=== PATIENT | female | born 1990 | race Caucasian/White ===

== ENCOUNTER 2016-06-27 10:55 | Emergency (ER) | payer BC ==
[2016-06-27 11:21] VITALS: BP 103/61
--- NOTE | 2016-06-27 11:44 | UC ---
Complaint Female HPI - HPI Summary HPI Summary: Patient has had burning with urination, increased frequency for the last three days, has increased her fluid intake to help flush her system. she denies any lower abdominal pain, fever. she is having some spotting from her monthly cycle is on the Mirena. - History Of Current Complaint Chief Complaint: UCGU Stated Complaint: UTI Time Seen by Provider: 06/27/16 11:30 Hx Obtained From: Patient Hx Last Menstrual Period: IUD ?: No Onset/Duration: Sudden Onset, Lasting Days Timing: Constant Severity Initially: Mild Severity Currently: Mild Pain Intensity: 3 Pain Scale Used: 0-10 Numeric Character: Burning, Cramping Aggravating Factor(s): Urination Alleviating Factor(s): Nothing - Risk Factors Ectopic Risk Factor: Negative Ovarian Torsion Risk Factor: Negative - Allergies/Home Medications Allergies/Adverse Reactions: Allergies Allergy/AdvReac Type Severity Reaction Status Date / Time Milk Protein Extract Allergy Severe Diarrhea Verified 06/17/14 16:51 Penicillins [PCN] Allergy Severe Difficulty Verified 06/17/14 16:51 Breathing ALMONDS Allergy Severe Hives, Uncoded 06/17/14 16:51 THROAT SWELLING PMH/Surg Hx/FS Hx/Imm Hx Previously Healthy: Yes Respiratory History Of: Reports: Asthma - Surgical History Surgical History: None - Family History Known Family History: Negative: Cardiac Disease, Hypertension - Social History Alcohol Use: Occasionally Substance Use Type: Marijuana Smoking Status (MU): Current Every Day Smoker Type: Cigarettes Amount Used/How Often: 3 CIG/DAY Review of Systems Constitutional: Negative Skin: Negative Eyes: Negative ENT: Negative Respiratory: Negative Cardiovascular: Negative Gastrointestinal: Negative Genitourinary: Dysuria, Frequency Motor: Negative Neurovascular: Negative Musculoskeletal: Negative Neurological: Negative Psychological: Negative All Other Systems Reviewed And Are Negative: Yes Physical Exam Triage Information Reviewed: Yes Appearance: Well-Appearing, Well-Nourished, Pain Distress Vital Signs: Initial Vital Signs Temp 98.7 F 06/27/16 11:17 Pulse 77 06/27/16 11:17 Resp 16 06/27/16 11:17 BP 103/61 06/27/16 11:17 Pulse Ox 100 06/27/16 11:17 Vital Signs Reviewed: Yes Eye Exam: Normal Eyes: Positive: Conjunctiva Clear ENT Exam: Normal ENT: Positive: Normal ENT inspection, Pharynx normal, TMs normal Dental Exam: Normal Neck exam: Normal Neck: Positive: Supple, Nontender, No Lymphadenopathy Respiratory Exam: Normal Respiratory: Positive: Chest non-tender, Lungs clear, Normal breath sounds Cardiovascular Exam: Normal Cardiovascular: Positive: RRR, No Murmur, Pulses Normal Abdominal Exam: Normal Abdomen Description: Positive: Nontender, No Organomegaly, Soft, Other: - no cva tenderness, increased need to urinate with lower abdominal palpation, no masses, no organomegaly Bowel Sounds: Positive: Present Musculoskeletal Exam: Normal Musculoskeletal: Positive: Strength Intact, ROM Intact, No Edema Neurological Exam: Normal Neurological: Positive: Alert, Muscle Tone Normal Psychological Exam: Normal Skin Exam: Normal Complaint Female Dx - Course Course Of Treatment: hx obtained, exam performed, UA pos for leuks and RBC, talked with patient about possibility of STD, has had multiple partners, however , no unusal discharge and is asymptomatic, requested the test for gonnorhea and chlamydia as well. sent a urined test. treated with antibiotic - Differential Dx/Diagnosis Differential Diagnosis/HQI/PQRI: Sexually Transmitted Disease, Ureteral Stone, Urinary Tract Infection Provider Diagnoses: Dysuria. UTI Discharge - Discharge Plan Condition: Stable Disposition: HOME Prescriptions: Sulfamethox/Trimethoprim DS* [Bactrim DS 800/160 TAB*] 1 tab PO BID #10 tab Patient Education Materials: How to Use a Nebulizer (ED) Referrals: Non Staff,Doctor [Primary Care Provider] - Additional Instructions: take the medication as prescribed, we have sent your urine to culture and will call with any change in treatment. Increase fluid intake and follow up with any worsening symptoms.
== END 2016-06-27 12:15 | disposition home or self-care (01) ==
LOC: UCEAST 10:55
DX: N39.0 Urinary tract infection, site not specified (principal); J45.909 Unspecified asthma, uncomplicated; F17.210 Nicotine dependence, cigarettes, uncomplicated; Z11.3 Encounter for screening for infections with a predominantly sexual mode of transmission; Z88.0 Allergy status to penicillin; Z91.018 Allergy to other foods; Z91.011 Allergy to milk products
CPT/HCPCS: 81002; 87491; 87591; 99202; G0463